=== PATIENT | female | born 1995 | race Caucasian/White ===

== ENCOUNTER 2024-08-05 09:11 | Emergency (ER) | payer OTHER ==
[~2024-08-05] VITALS: Ht 180.3 cm; Wt 92.9 kg
[~2024-08-05 09:11] MED LIST: LO LOESTRIN PO; OMEPRAZOLE DR40 MG PO; TUMS E-X 750750 MG PO; ZOFRAN4 MG/TAB PO
[2024-08-05 09:17] VITALS: BP 150/95
[2024-08-05 09:30] VITALS: BP 141/90
[2024-08-05] MEDS ORDERED: predniSONE 20 MG/TAB PO ONE (09:30)
[2024-08-05] MEDS ORDERED: IPRATROPIUM-Albuterol 0.5MG-2.5MG/3 ML NEB ONE ×2 (09:30)
[2024-08-05] MEDS ORDERED: AMOX/K CLAV875 M1 PO (09:33)
[2024-08-05] MEDS ORDERED: PREDNISONE50 MG PO (09:33)
[2024-08-05] MEDS ORDERED: ALBUTEROL SUL0.083 % IN (09:33)
[2024-08-05] MEDS ORDERED: VENTOLIN HFA108 MCG PO (09:33)
[2024-08-05] MEDS ORDERED: ZPAK PO (09:33)
[2024-08-05] MEDS ORDERED: NEBULIZER PO (09:33)
[2024-08-05] MEDS ORDERED: ZOFRAN4 MG/TAB PO (09:35)
[2024-08-05 09:46] VITALS: BP 129/77
[2024-08-05] MEDS ORDERED: CHERATUSSIN PO (09:58)
[2024-08-05 10:00] VITALS: BP 141/88
== END 2024-08-05 10:12 | disposition home or self-care (01) ==
LOC: ED 09:11
DX: J18.9 Pneumonia, unspecified organism (principal)